=== PATIENT | female | born 1970 | race American Indian/Alaskan Native ===

== ENCOUNTER 2021-05-29 17:22 | Emergency (ER) | payer OTHER ==
[2021-05-29 18:43] VITALS: BP 152/87
[2021-05-29] MEDS ORDERED: ONDANSETRON 4 MG ODT TAB PO ONE (22:53)
[2021-05-29] MEDS ORDERED: HYDROcodone/ACETAMINOPHEN 5-325 MG TAB PO ONE (22:53)
[2021-05-29] MEDS ORDERED: IBUPROFEN 600 MG TAB PO ONE (22:53)
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
== END 2021-05-30 00:20 | disposition home or self-care (01) ==
LOC: ED 17:22
DX: S29.012A Strain of muscle and tendon of back wall of thorax, initial encounter (principal); M62.838 Other muscle spasm; M62.830 Muscle spasm of back; G43.909 Migraine, unspecified, not intractable, without status migrainosus; Z79.899 Other long term (current) drug therapy; Z91.040 Latex allergy status; Z98.890 Other specified postprocedural states; V49.49XA Driver injured in collision with other motor vehicles in traffic accident, initial encounter; Y92.410 Unspecified street and highway as the place of occurrence of the external cause; Y93.89 Activity, other specified; Y99.8 Other external cause status
CPT/HCPCS: 70450; 72070; 72100; 72125; Q0162